=== PATIENT | male | born 1985 | race Caucasian/White ===

== ENCOUNTER → 2019-10-09 13:39 | Outpatient (CLI) | payer BC, SELFPAY ==
[2018-11-24 12:42] VITALS: BMI 25.4
--- NOTE | 2019-10-09 13:41 | CT_ITS ---
STUDY: CT SOFT TISSUE NECK WITH CONTRAST REASON FOR EXAM: Male, 34 years old. PT STATED PALPABLE LUMP ON BOTH SIDES OF NECK. RADIATION DOSAGE (If Supplied By Facility): CTDIvol = ( 17.42 ) mGy, DLP = ( 569.80 ) mGycm TECHNIQUE: The patient was scanned in a multi-detector CT scanner. High resolution transaxial imaging was performed following intravenous administration of IV 100mL Isovue-300. Sagittal and coronal images were reconstructed. Individualized dose optimization techniques were used for this CT. COMPARISON: None. FINDINGS: Mild enlargement of both lobes of the thyroid worse on the right side with heterogeneous density. This may represent goitrous change. Correlation with ultrasound is recommended. Normal bilateral parotid glands. Normal bilateral lamp mechanic spaces. Normal bilateral parapharyngeal spaces. Normal bilateral carotid spaces. Normal bilateral sublingual and submandibular glands and spaces. Normal visualized nasopharynx. Normal retropharyngeal space. Normal perivertebral space. Normal visualized bilateral faucial tonsils. The visualized tongue, tongue base and oropharynx are normal. There are minimally enlarged lymph nodes of the neck, with preservation of normal josé miguel architecture, consistent with a reactive lymph hyperplasia. There is no demonstrated solid or cystic mass lesion. There is no abnormal contrast enhancement. Normal epiglottis, bilateral vallecula and hypopharynx. The pre-epiglottic and paraglottic adipose spaces are normal. Normal visualized bilateral piriform sinuses, aryepiglottic folds, vocal cords, and arytenoid-cricoid articulations. Normal subglottic trachea. Normal bilateral lobes of the thyroid gland. Normal visualized pulmonary apices. Normal visualized paranasal sinuses. Normal visualized cervical spine. CT/Soft Tissue Neck WITH Contrast IMPRESSION: Heterogeneous appearance of both lobes of thyroid with mild enlargement of the thyroid gland more prominent in the right lobe of the thyroid. Correlation with ultrasound is recommended for further evaluation. Electronically Signed: Uriel Vargas, at 14:45 EST , Service support ,
[2019-10-09 13:51] LABS: CREATININE FINGERSTICK 1.1 mg/dL (0.70-1.30); EGFR FINGERSTICK > 60.0000 mL/min (>60)
== END ==
PROVIDERS: PCP Family Medicine; Referring Provider Otolaryngology; Visit Provider Otolaryngology
DX: R22.1 Localized swelling, mass and lump, neck (principal)
CPT/HCPCS: 70491; Q9967

== ENCOUNTER → 2020-10-03 10:32 | Outpatient (CLI) | payer BC, SELFPAY ==
[2020-10-03 09:42] VITALS: BMI 27.7
[2020-10-03 12:56] LABS: AST(SGOT) 17 U/L (15-37); Alanine Aminotransfer ALT/SGPT 25 U/L (16-61); Albumin, Serum 4.1 g/dL (3.2-5.0); Alkaline Phosphatase 57 U/L (45-117); Anion Gap 4 (5-15); BUN 8 mg/dL (7-18); BUN/Creat Ratio 8.1 RATIO (10-20); Calcium,Total 9.3 mg/dL (8.5-10.1); Chloride 103 mmol/L (98-107); Cholesterol 267 mg/dL (200); Creatinine, Serum 0.99 mg/dL (0.70-1.30); EST Glomerular Filtration Rate 91 mL/min (>60); Est Glom Filt Rate - Afr Amer 110 mL/min (>60); Globulin 4.1 g/dL (2.2-4.2); Glucose 103 mg/dL (74-106); High Density Lipoprotein 42 mg/dL; Potassium 4.4 mmol/L (3.5-5.1); Protein, Total 8.2 g/dL (6.4-8.2); Sodium Level 137 mmol/L (136-145); Thyroid Stim Hormone (TSH) 8.67 uIU/mL (0.358-3.74); Triglycerides 161 mg/dL; Very Low Density Lipoprotein 32 mg/dL (5-40)
[2020-10-03 13:10] LABS: Microalbumin,Random Urine < 5.0 mg/L (NO RANGE EST.)
[2020-10-04 20:39] LABS: Thyroid Peroxidase AB 181 IU/mL (0-34)
== END ==
PROVIDERS: PCP Family Medicine; Referring Provider Internal Medicine Endocrinology, Diabetes & Metabolism; Visit Provider Internal Medicine Endocrinology, Diabetes & Metabolism
DX: E78.2 Mixed hyperlipidemia (principal); E10.9 Type 1 diabetes mellitus without complications
CPT/HCPCS: 36415; 80053; 80061; 82043; 82570; 84443; 86376

== ENCOUNTER → 2021-01-02 09:55 | Outpatient (CLI) | payer BC, SELFPAY ==
[2021-01-02 09:23] VITALS: BMI 27.0
[2021-01-02 13:34] LABS: Cholesterol 237 mg/dL (200); High Density Lipoprotein 45 mg/dL; T4 Free Direct 1.14 ng/dL (0.76-1.46); Thyroid Stim Hormone (TSH) 1.34 uIU/mL (0.358-3.74); Triglycerides 140 mg/dL; Very Low Density Lipoprotein 28 mg/dL (5-40)
== END ==
PROVIDERS: PCP Family Medicine; Referring Provider Internal Medicine Endocrinology, Diabetes & Metabolism; Visit Provider Internal Medicine Endocrinology, Diabetes & Metabolism
DX: E03.8 Other specified hypothyroidism (principal); E06.3 Autoimmune thyroiditis; E78.2 Mixed hyperlipidemia
CPT/HCPCS: 36415; 80061; 84439; 84443

== ENCOUNTER 2021-12-09 15:04 | Outpatient (CLI) | payer BC, SELFPAY ==
[2021-12-09 16:56] LABS: ALB/GLOB Ratio 1.1 RATIO (0.9-2.4); AST(SGOT) 21 U/L (15-37); Alanine Aminotransfer ALT/SGPT 40 U/L (16-61); Albumin, Serum 4.2 g/dL (3.2-5.0); Alkaline Phosphatase 54 U/L (45-117); Anion Gap 4 (5-15); BUN 11 mg/dL (7-18); Calcium,Total 9.1 mg/dL (8.5-10.1); Chloride 102 mmol/L (98-107); Cholesterol 210 mg/dL (200); EST Glomerular Filtration Rate 89 mL/min (>60); Est Glom Filt Rate - Afr Amer 108 mL/min (>60); Globulin 3.9 g/dL (2.2-4.2); Glucose 242 mg/dL (74-106); High Density Lipoprotein 47 mg/dL; Potassium 3.9 mmol/L (3.5-5.1); Protein, Total 8.1 g/dL (6.4-8.2); Sodium Level 137 mmol/L (136-145); T4 Free Direct 0.99 ng/dL (0.76-1.46); Thyroid Stim Hormone (TSH) 3.05 uIU/mL (0.358-3.74); Triglycerides 196 mg/dL; Very Low Density Lipoprotein 39 mg/dL (5-40)
[2021-12-09 17:02] LABS: Creatinine, Urine (random) < 13.00 mg/dL (NO RANGE EST.); Microalbumin,Random Urine < 5.0 mg/L (NO RANGE EST.)
== END 2021-12-09 23:59 | disposition home or self-care (01) ==
LOC: BIMLAB 15:04
PROVIDERS: PCP Family Medicine; Referring Provider Internal Medicine Endocrinology, Diabetes & Metabolism; Visit Provider Internal Medicine Endocrinology, Diabetes & Metabolism
DX: E10.65 Type 1 diabetes mellitus with hyperglycemia (principal); E03.8 Other specified hypothyroidism; E06.3 Autoimmune thyroiditis; E78.2 Mixed hyperlipidemia
CPT/HCPCS: 36415; 80053; 80061; 82043; 82570; 84439; 84443

== ENCOUNTER → 2023-04-12 | Outpatient (CLI) | payer BC, SELFPAY ==
[2023-04-12 13:44] LABS: Microalbumin,Random Urine < 5.0 mg/L (NO RANGE EST.)
[2023-04-12 13:56] LABS: AST(SGOT) 31 U/L (15-37); Alanine Aminotransfer ALT/SGPT 43 U/L (16-61); Albumin, Serum 3.9 g/dL (3.2-5.0); Alkaline Phosphatase 53 U/L (45-117); Anion Gap 2 (5-15); BUN 11 mg/dL (7-18); BUN/Creat Ratio 10.8 RATIO (10-20); Calcium,Total 9.4 mg/dL (8.5-10.1); Chloride 103 mmol/L (98-107); Cholesterol 182 mg/dL (200); Creatinine, Serum 1.02 mg/dL (0.70-1.30); EST Glomerular Filtration Rate 87 mL/min (>60); Est Glom Filt Rate - Afr Amer 105 mL/min (>60); Globulin 3.9 g/dL (2.2-4.2); Glucose 150 mg/dL (74-106); High Density Lipoprotein 51 mg/dL; Protein, Total 7.8 g/dL (6.4-8.2); Sodium Level 134 mmol/L (136-145); T4 Free Direct 0.91 ng/dL (0.76-1.46); Thyroid Stim Hormone (TSH) 3.95 uIU/mL (0.358-3.74); Triglycerides 149 mg/dL; Very Low Density Lipoprotein 30 mg/dL (5-40)
[2023-04-12 14:22] LABS: Hemoglobin A1c 6.5 % (3.8-5.6)
== END | disposition home or self-care (01) ==
LOC: BIMLAB 10:49
PROVIDERS: PCP Family Medicine; Referring Provider Internal Medicine Endocrinology, Diabetes & Metabolism; Visit Provider Internal Medicine Endocrinology, Diabetes & Metabolism
DX: E10.9 Type 1 diabetes mellitus without complications (principal); Z96.41 Presence of insulin pump (external) (internal); Z46.81 Encounter for fitting and adjustment of insulin pump; E03.8 Other specified hypothyroidism; E06.3 Autoimmune thyroiditis; E78.2 Mixed hyperlipidemia; E66.3 Overweight
CPT/HCPCS: 36415; 80053; 80061; 82043; 82570; 83036; 84439; 84443

== ENCOUNTER → 2023-11-02 | Outpatient (CLI) | payer BC, SELFPAY ==
--- NOTE | 2023-11-02 11:43 | US_ITS ---
STUDY: THYROID ULTRASOUND REASON FOR EXAM: Male, 38 years old. Goiter TECHNIQUE: Ultrasound evaluation of the thyroid was performed with real-time and static ureña-scale imaging. COMPARISON: None. FINDINGS: RIGHT LOBE: The right lobe of the thyroid gland is enlarged and measures 5.9 cm x 2.4 cm x 2.5 cm. There is a heterogeneous echotexture. There is a 8 mm x 6 mm x 6 mm hypoechoic solid nodule in the midpole of the right lobe. The nodule has a hypodense rim suggestive of a possible goitrous change. LEFT LOBE: The left lobe of the thyroid gland is enlarged and measures 5.4 cm x 2 cm x 2.1 cm. There is a heterogeneous echotexture. There are no demonstrated solid, cystic or complex lesions. ISTHMUS: The isthmus measures 4 mm. The regional lymph nodes are normal. US/Thyroid IMPRESSION: Mildly enlarged thyroid gland with heterogeneous echotexture. 8 mm x 6 mm x 6 mm hypoechoic solid nodule in the midpole of the right lobe of the thyroid suggestive of goitrous change. Electronically Signed: Uriel Vargas MD at 14:05 EST ,
--- OUTSIDE RECORDS SUMMARY | 2023-11-02 12:43 | XMS RPT_ITS | CCD ---
Author Name Unknown Address [address] [facility] [facility] [address] [place] [address] Organization [facility] Care Team Providers Care Bulk Intake Worker Name Role Phone Zoë Hernandez NP Unavailable [place] CHRONOMETER REPAIRER, Karen K Unavailable Unavailable [place] CHRONOMETER REPAIRER, Akren K Unavailable Unavailable [place] CHRONOMETER REPAIRER, Karen K Unavailable Unavailable Mary RELAY MOTORMANZoë Unavailable HAMILTON PRICE Consulting Unavailable REBECCA, DR LING London Admitting Unavaila ble REBECCA, DR LING London Attending Unavaila ble REBECCA, DR LING London Primary Care Unavaila ble PROVIDER, UNKNOWN Consulting Unavailable PROVIDER, UNKNOWN Consulting Unavailable PROVIDER, UNKNOWN Consulting Unavailable REBECCA, DR LING London Admitting Unavaila ble HAMILTON PRICE Consulting Unavailable REBECCA, DR LING London Attending Unavaila ble REBECCA, DR LING London Primary Care Unavaila ble PROVIDER, UNKNOWN Consulting Unavailable PROVIDER, UNKNOWN Consulting Unavailable PROVIDER, UNKNOWN Consulting Unavailable ORTA, DIANN Admitting Unavailable ORTA, DIANN Attending Unavailable ORTA, DIANN Consulting Unavailable YOU, DIANN Primary Care Unavailable PROVIDER, UNKNOWN Consulting Unavailable NATALI HARPER Primary Care Unavailable HAMILTON PRICE Consulting Unavailable NATALI HARPER Admitting Unavailable NATALI HARPER Attending Unavailable PROVIDER, UNKNOWN Consulting Unavailable PROVIDER, UNKNOWN Consulting Unavailable PROVIDER, UNKNOWN Consulting Unavailable DONTE BOLTON Attending Unavailable DONTE BOLTON Primary Care Unavailable DONTE BOLTON Admitting Unavailable YOU, DIANN Consulting Unavailable PROVIDER, UNKNOWN Consulting Unavailable Yudelka SELLERS, Lázaro Malone Unavailable King MARLO, Dr. Ballesteros Unavailable [facility], . [facility] Unavailable Aydee SELLERS, Dr. Nunes Unavailable Dr. Natali Harper MD Unavailable (Pelletier), [facility] Unavailable Mauri THERMITE WELDER, Krissy Unavailable You PTAINO, Diann Rosado Unavailable Gonzalo THERMITE WELDER, Aisha Unavailable Unavailable Stephan SELLERS, Donte Louis Unavailable Gogoi (scribe), Hemanta Unavailable Unavaila jl Rodriguez THERMITE WELDER, Allison Unavailable Unavailable Albert SELLERS, Hamilton Malone Unavailable Airam PATINO, Perla Melendez Unavailable Clifford PATINO, Reynold London Unavailable Benjamin KRUSEN, Juliette Unavailable Unavailable King ARISC, Gato Almaraz Unavailable [phone] Sherry MG, Perla Malone Unavailable Unavaila jl Werner RN, Yael Y Unavailable Unavailable Skinny THERMITE WELDER, Jo Unavailable Unavailable Mutersbacary THERMITE WELDER, Rosanna K Unavailable Unavai parag Gore THERMITE WELDER, Magaly L Unavailable Unavailab le Yeni THERMITE WELDER, Maria M M Unavailable Unavailab le Sesar THERMITE WELDER, Elzbieta Darden Unavailable Unavailab le Vess THERMITE WELDER, Matilda L Unavailable Unavailable Wengerd THERMITE WELDER, Liberty Unavailable Unavailabl e Unavailable Unavailable Allergies Allergy Classification Reported Allergen(s) Allergy Type Date of Onset Reaction(s) Facility (10 sources) Penicillins (Antibiotic) drug allergy 05-06-2017 [facility] Work Phone: (1 source) Penicillin Drug Allergy [facility] (1 source) Lovastatin Drug Allergy [facility], [place] [place] (1 source) Penicillin V Drug Allergy Rash [facility], [facility] Medications Current Medications Medication Drug Class(es) Dates Sig (Normalized) Sig (Original) atorvastatin 10 mg oral tablet (1 source) HMG-CoA Reductase Inhibitor Atorvastatin Calcium 10 MG Oral Tablet ; (10 MG) insulin aspart, human 100 unt/ml injectable solution (9 sources) Insulin Analog Start: 12-02-2020 NovoLOG 100 UNIT/ML Subcutaneous Solution ; 60 unit daily injected into insulin pump for 0 days Quantity: 20 {Milliliter} Refills: 5 Ordered: 02-Dec-2020 MD Hamilton Price Start: 02-Dec-2020 Completed/Discontinued Medications Medication Drug Class(es) Dates Sig (Normalized) Sig (Original) Accu-Chek Combo Kit (1 source) Start: 04-30-2017 End: 11-21-2018 Accu-Chek Combo Kit ; 1 (one) Kit now for 0 days Quantity: 1 Kit Refills: 0 Ordered: 21-Nov-2018 EZEKIEL Kaba Elzbieta Darden Start: 30-Apr-2017 End: 21-Nov-2018 Status: Inactive Comments: test twice daily Problems Active Problems Problem Classification Problem Date Documented Date Episodic/Chronic Abdominal pain (1 source) Abdominal pain - cause unknown; Translations: [Left upper quadrant pain] 01-14-2017 Episodic Acute bronchitis (2 sources) Acute bronchitis; Translations: [Acute bronchitis, unspecified] 08-15-2019 Episodic Administrative/social admission (2 sources) Issue of repeat prescriptions 01-04-2015 Episodic Allergic reactions (7 sources) Contact dermatitis; Translations: [Unspecified contact dermatitis, unspecified cause] 03-13-2014 Episodic Chronic obstructive pulmonary disease and bronchiectasis (4 sources) Bronchitis; Translations: [Bronchitis, not specified as acute or chronic] 04-22-2022 Episodic Contraceptive and procreative management (3 sources) Contraception status; Translations: [Encounter for sterilization] 02-04-2022 Episodic Diabetes mellitus without complication (17 sources) Type 1 diabetes mellitus; Translations: [Type 1 diabetes mellitus without complications] Onset: 05-06-2017 05-06-2017 Chronic Past or Other Problems Problem Classification Problem Date Documented Da te Episodic/Chronic Unclassified (1 source) Cold Symptoms - Symptoms include sneezing, runny nose, non-purulent sputum (clear), ear fullness ( always feels like there is liquid in my ears . Did use flonase in the past but gave him bloody noses), sore throat (is worse in the mornings, has post nasal drainage), hoarseness and productive cough (in the mornings has noticed some blood tinged sputum), but do not include nasal congestion, ear pain, dry cough, wheezing (no shortness of breath), fever, chills, general malaise (no body aches), headache or facial pain. The onset was gradual day(s) ago (8-9 days). The symptoms occur constantly. The patient describes this as moderate in severity and unchanged. Current treatment includes an oral decongestant (mucinex). Risk factors do not include smoking. The patient has not been exposed to an individual with an upper respiratory infection (possibly, has young children). Medical history includes seasonal allergies and asthma (exercise-induced asthma), but patient denies history of recurrent sinusitis. Note for Upper respiratory infection : Took 3 Covid-19 tests at home, which were all negative. 07-31-2022 Unclassified (1 source) Cold Symptoms - Symptoms include ear pain, dry cough, productive cough and headache. The onset was gradual 5 day(s) ago. The symptoms occur constantly. The patient describes this as moderate in severity and improving (slightly better). Current treatment includes non-prescription cold medication (mucinex DM). Risk factors do not include smoking. The patient has not been exposed to an individual with a cough, an individual with an upper respiratory infection, an individual with similar symptoms, an individual with strep or secondhand smoke. Medical history includes seasonal allergies, but patient denies history of recurrent sinusitis, recurrent strep pharyngitis, tonsillectomy or recurrent ear infections. Note for Upper respiratory infection : pt tested m,t,w with home covid tests- all negative reviewed by [facility] 04-22-2022 Unclassified (1 source) Cold Symptoms - Symptoms include ear pain, ear fullness and sore throat (only in the morning, thinks it might be from drainage). The onset was gradual 4 day(s) ago. The symptoms occur constantly. The patient describes this as moderate in severity and unchanged. Current treatment includes nasal corticosteroids. Medical history includes seasonal allergies. Note for Upper respiratory infection : Pt is also having nose bleeds 02-11-2022 Unclassified (1 source) Vasectomy - Consent signed: yes. Has available transportation home: yes. Pre-Op med taken: yes. 12-12-2021 Unclassified (1 source) Sore throat - The onset of the sore throat has been sudden and has been occurring in a persistent pattern for 1 day (Started yesterday). The course has been without change. The sore throat is described as mild to moderate. The sore throat was precipitated by exposure to a person with strep pharyngitis (Patient's son tested positive for Strep on ) and exposure to a person with a viral illness (Patient's tested positive for COVID on Wednesday), but not by chest congestion, exposure to chemicals, exposure to a person with influenza, sinus infection or sinus problems. Symptoms include sore throat, runny nose and cough, but do not include fever, headache, nasal congestion or ear pain. The symptoms are aggravated by eating and swallowing. Relieving factors include drinking liquids (warm liquids). Medical history includes recurrent strep pharyngitis (had it many times as a kid and a few times as an adult.), but does not include seasonal allergies, recurrent sinusitis or tonsillectomy. Note for Sore throat : 2 negative rapid covid tests 09-15-2021 Unclassified (1 source) Vasectomy evaluation - The patient is . He has 2 biological child(du). 08-20-2021 Unclassified (1 source) Abdominal pain - The onset of the abdominal pain has been gradual and has been occurring in an intermittent pattern for 1 week. The course has been recurrent. The pain is described as a moderate fullness and cramping. The pain is located in the left upper quadrant (under ribs) and left lower quadrant and does not radiate. The symptoms are aggravated by lying down (lay he lays on his side a certain way) and empty stomach but are relieved by nothing (standing sometimes gives relief). The symptoms have been associated with bloating, while the symptoms have not been associated with abdominal distention, bloody stools, chest pain, constipation, diarrhea, dysuria, fever, heartburn, nausea or vomiting. Note for Abdominal pain : pt said its under his left side of his rib and feels like something is out of place-- says he has to lay in different positions sometimes to give it relievesays he will feel bloated but is still hungry since he has not atept said a few weeks ago he did lift something the other day that was too heavy -- unsure if this is related but pot thought why would he also have the bloatingpt said in college he did have an umbilical hernia 01-16-2021 Unclassified (1 source) Chest pain - The pain has been occurring in a persistent (always feel the discomfort of his chest but then will have waves of increased discomfort.) pattern for 4 days. The pain is described as a discomfort and dull ache. The pain is described as being located in the left chest (started on left side, that radiated straight through to his upper back) and right chest. There has been no associated fever (no SOB.). Note for Chest pain : About 2 weeks ago, for about 3 days had a burning sensation of his lower chest. Water would not affect the pain. If he would drink pop or milk or would eat the burning sensation would get worse. He started taking an acid crab picker and this resolved.Reviewed by Diann Orta PA-C. 03-14-2020 Unclassified (1 source) Cold Symptoms - Symptoms include nasal congestion, runny nose, purulent discharge, productive cough and headache, but do not include fever. The onset was gradual 2 week(s) ago. The symptoms occur constantly. The patient describes this as moderate in severity and unchanged. The patient is not currently being treated for this problem. Note for Upper respiratory infection : Children have also been ill but no fevers. Pt has coughed a few times and had some blood. 12-11-2019 Unclassified (1 source) swollen lymph nodes - pt says he delt with this as a kid- they would flare up and then go back to normal pt says they have been inflammed for the past week weeks, little tender and hard pt says some left sided chest pain while moving as wellno fever, sore thorat, nasal congestion 09-28-2019 Unclassified (1 source) Cold Symptoms - Symptoms include sneezing, nasal congestion, runny nose, ear fullness, sore throat, productive cough, fever (100.1 was highest), chills and headache, but do not include general malaise. The onset was sudden 6 day(s) ago. The symptoms occur constantly. The patient describes this as moderate in severity and unchanged. Current treatment includes non-prescription cold medication. The patient has been exposed to an individual with an upper respiratory infection. 08-17-2019 Unclassified (1 source) Eye symptoms - The onset of the eye symptoms has been acute and has been occurring for 4 days. The eye symptoms involve the right eye. Note for Eye symptoms : Initially, patient noticed a slight pain/discomfort to the lateral side of right eye. Then developed swelling below the right eye, the swelling has improved but now is concerned due to there being a small hard lump present. No eye pain or itchiness. Does have seasonal allergies and wears contacts. Has history of styes. 03-17-2019 Unclassified (1 source) Abdominal pain - The onset of the abdominal pain has been sudden and has been occurring in a persistent pattern for 2 days. The course has been increasing. The pain is described as a moderate dull ache and cramping. The pain is located in the left upper quadrant and radiates to the back. The symptoms have no aggravating factors but have no relieving factors. There has been no associated constipation or diarrhea. 01-14-2017 Unclassified (1 source) Knee pain - The knee pain has been occurring in an intermittent pattern for 10 years (used to occur every couple of months but is now becoming more frequent. Every couple weeks. ). The course has been gradually worsening. The knee pain is moderate in the left knee. The knee pain is characterized as a sharp stabbing. The knee pain is described as being located in the lateral knee. The knee pain is relieved by rest, heat and ice. The symptoms have been associated with giving way, catching and locking. Previous diagnostic tests include plain radiographs (about 10 years ago had xrays done). There has been no previous physical therapy. There has been no previous surgeries. Assistive devices include bracing (knee brace). Note for Knee pain : Did play sports when he was younger. No new pain, problems, just want to get looked at. 07-17-2016 Unclassified (1 source) Concern - Patient is here today with a concern of possible lump of testicle. Noticed a couple of weeks ago. Size remains the same. Denies causing any pain or heaviness. No burning on urination, urgency or frequency. No Fever. Does not regularly do self testicular exams. Denies problems with ejaculation. Denies blood in semen and urine. 04-29-2016 Unclassified (1 source) Chest pain - The onset of the pain has been sudden and has been occurring in an increasing pattern for 3 days. The pain is described as a moderate tightness. The pain is described as being located in the left chest and does not radiate. The pain is precipitated by exercise (different movement-stretching). The symptoms are aggravated by stress. The symptoms have no relieving factors. The symptoms have been associated with emotional stress (work stress, planning a wedding, and looking for a house to buy), but have not been associated with abdominal pain, cough, dizziness, diaphoresis, dyspnea, fever, headache, history of heart disease, hypertension, nausea, palpitations, shoulder pain or vomiting. There have been no previous evaluations. There is a family history of diabetes and hypertension, while there is no family history of coronary artery disease. 12-20-2015 Unclassified (1 source) Abdominal pain - The onset of the abdominal pain has been acute and has been occurring in a persistent pattern for 6 days. The course has been decreasing. The pain is described as a moderate dull ache and pressure sensation. The pain is located in the right lower quadrant and left lower quadrant and does not radiate. The symptoms have been associated with bloating and constipation, while the symptoms have not been associated with dysuria, fever or nausea. 09-16-2015 Unclassified (1 source) Rash - The onset of the rash has been acute and has been occurring in a persistent pattern for 3 days. The course has been increasing. The rash is characterized as red. The rash was first seen on the upper extremity. It spread to the trunk (abdomen) and the groin. There has been associated itching. 12-24-2014 Unclassified (1 source) Eye Symptoms - The onset of the eye symptoms has been acute and has been occurring in a persistent pattern for 2 days. The course has been worsening. The eye symptoms are described as moderate and involve the right eye. The symptoms are described as pain and swelling. Note for Eye symptoms : reviewed by [facility] 11-19-2014 Unclassified (1 source) Well adult male - The patient feels well with no complaints. The patient has a balanced diet. The patient exercises 3 - 4 times per week. The patient sleeps 7 hours per night. 08-24-2014 Unclassified (1 source) Rash - The onset of the rash has been acute and has been occurring in a persistent pattern for 3 days. The course has been constant. The rash is characterized as red, raised above the skin and grouped in crops. The rash was first seen on the lower extremity (right ankle area). It spread to the lower extremity (left leg). There has been associated itching and erythema, while there has been no associated pain, drainage or edema. There has been no associated chills, fever or mucous membrane lesions. 01-17-2014 Unclassified (1 source) Abdominal pain - The onset of the abdominal pain has been acute and has been occurring in an intermittent pattern for 3 days. The course has been decreasing. The pain is described as a moderate sharp pain. The pain is located in the right lower quadrant (below surgery incision) and does not radiate. The symptoms are aggravated by exercise. There has been no associated bloating, constipation, diarrhea, fever, nausea or vomiting. Note for Abdominal pain : Patient had appendectomy on 09/06/13 and has had intermittent pain since then. Patient lifted a gun case and has pain since. 11-08-2013 Unclassified (1 source) Rash - The onset of the rash has been acute and has been occurring in a persistent pattern for 1 day. The course has been increasing. The rash is characterized as red, raised above the skin and grouped in crops. The rash was first seen on the upper extremity (left). It spread to the lower extremity (bilateral). There has been associated itching and pain. There has been associated itching. Note for Rash : Patient was exposed to poison jannette while weedeating 2 days ago. 02-02-2013 Unclassified (1 source) Cold Symptoms - Symptoms include productive cough, wheezing and headache. The onset was gradual 1 week(s) ago. The symptoms occur constantly. The patient describes this as moderate in severity and worsening. The patient is not currently being treated for this problem. 10-21-2012 Results Test Name Value Interpretation Reference Range Facil ity Vital Signs Date Time Vital Sign Value Performing Clinician Faci lity 07-31-2022 11:02-0500 Body height 198.12 cm Perla Powell RN [facility], [facility] [facility] 07-31-2022 11:02-0500 Body mass index (BMI) [Ratio] 27.85 kg/m2 [facility] [employer] [facility] 07-31-2022 11:02-0500 Body surface area Derived from formula 2.44 m2 [facility] [employer] [facility] 07-31-2022 11:02-0500 Body temperature 98.8 [degF] Perla Powell RN [facility]; [facility] Encounters Encounter Date Encounter Type Care Provider Facility Start: 08-31-2022 End: 08-31-2022 Nursing evaluation of patient and report Lázaro Jha MD Work Phone: [facility] Start: 07-31-2022 End: 07-31-2022 Office outpatient visit 15 minutes Lázaro Jha MD Work Phone: [facility] Start: 04-22-2022 End: 04-22-2022 Office outpatient visit 15 minutes Lázaro Jha MD Work Phone: [facility] Start: 02-11-2022 End: 02-11-2022 Office outpatient visit 15 minutes Lázaro Jha MD Work Phone: [facility] Start: 02-04-2022 End: 02-04-2022 Historical Summary Lázaro Jha MD Work Phone: [facility] Start: 12-12-2021 End: 12-12-2021 Procedure Lázaro Jha MD Work Phone: [facility] Start: 09-18-2021 End: 09-18-2021 Medication Lázaro Jha MD Work Phone: [facility] Start: 09-17-2021 End: 09-17-2021 ambulatory DONTE BOLTON [facility] Start: 09-17-2021 End: 09-17-2021 Orders Lázaro Jha MD Work Phone: [facility] Start: 09-15-2021 End: 09-15-2021 ambulatory DIANN ORTA [facility] Start: 09-15-2021 End: 09-15-2021 Office outpatient visit 15 minutes Lázaro Jha MD Work Phone: [facility] Start: 08-20-2021 End: 08-20-2021 Patient encounter procedure Lázaro Jha MD Work Phone: [facility] Start: 04-02-2021 End: 04-02-2021 Follow-up encounter Lázaro Jha MD Work Phone: [facility] Start: 03-05-2021 End: 03-05-2021 ambulatory NATALI HARPER [facility] Start: 01-16-2021 End: 01-16-2021 Office outpatient visit 15 minutes Lázaro Jha MD Work Phone: [facility] Start: 12-20-2020 End: 12-20-2020 ambulatory HAMILTON Malone ALBERT [facility] Start: 11-22-2020 End: 11-22-[address] LING FERNANDEZ [facility] Start: 2020 End: 2020 Follow-up encounter Lázaro Jha MD Work Phone: [facility] Start: 06-21-2020 End: 06-21-2020 Office outpatient visit 15 minutes Lázaro Jha MD Work Phone: [facility] Start: 04-19-2020 End: 04-19-2020 Follow-up encounter Lázaro Jha MD Work Phone: [facility] Start: 03-14-2020 End: 03-14-2020 Office outpatient visit 15 minutes Lázaro Jha MD Work Phone: [facility] Start: 01-17-2020 End: 01-17-2020 Follow-up encounter Lázaro Jha MD Work Phone: [facility] Start: 12-11-2019 End: 12-11-2019 Office outpatient visit 15 minutes Lázaro Jha MD Work Phone: [facility] Start: 10-31-2019 End: 10-31-2019 Historical Summary Lázaro Jha MD Work Phone: [facility] Start: 09-28-2019 End: 09-28-2019 Follow-up encounter Lázaro Jha MD Work Phone: [facility] Start: 09-28-2019 End: 09-28-2019 Office outpatient visit 15 minutes Lázaro Jha MD Work Phone: [facility] Start: 08-15-2019 End: 08-17-2019 Office outpatient visit 15 minutes Lázaro Jha MD Work Phone: [facility] Start: 08-09-2019 End: 08-09-2019 Follow-up encounter Lázaro Jha MD Work Phone: [facility] Start: 07-22-2019 End: 07-22-2019 Home visit Lázaro Jha MD Work Phone: [facility] Start: 07-04-2019 End: 07-04-2019 Follow-up encounter Lázaro Jha MD Work Phone: [facility] Start: 06-28-2019 End: 06-28-2019 Medication Lázaro Jha MD Work Phone: [facility] Start: 06-28-2019 End: 06-28-2019 Follow-up encounter Lázaro Jha MD Work Phone: [facility] Start: 06-14-2019 End: 06-14-2019 Orders Lázaro Jha MD Work Phone: [facility] Start: 05-17-2019 End: 05-17-2019 Follow-up encounter Lázaro Jha MD Work Phone: [facility] Start: 05-03-2019 End: 05-03-2019 Follow-up encounter Lázaro Jha MD Work Phone: [facility] Start: 03-20-2019 End: 03-20-2019 Medication Lázaro Jha MD Work Phone: [facility] Start: 03-17-2019 End: 03-17-2019 Office outpatient visit 15 minutes Lázaro Jha MD Work Phone: [facility] Start: 02-08-2019 End: 02-08-2019 Follow-up encounter Lázaro Jha MD Work Phone: [facility] Start: 12-05-2018 End: 12-05-2018 Orders Lázaro Jha MD Work Phone: [facility] Start: 12-02-2018 End: 12-02-2018 Orders Lázaro Jha MD Work Phone: [employer] Start: 12-01-2018 End: 12-02-2018 Orders Lázaro Jha MD Work Phone: [facility] Start: 11-21-2018 End: 11-21-2018 Office outpatient visit 25 minutes Lázaro Jha MD Work Phone: [facility] Start: 08-10-2018 End: 08-10-2018 Nursing evaluation of patient and report Lázaro Jha MD Work Phone: [facility] Start: 05-27-2018 End: 05-27-2018 Historical Summary Lázaro Jha MD Work Phone: [facility] Start: 06-09-2017 End: 06-09-2017 Nursing evaluation of patient and report Lázaro Jha MD Work Phone: [facility] Start: 05-07-2017 End: 05-07-2017 Historical Summary Lázaro Jha MD Work Phone: [facility] Start: 04-30-2017 End: 04-30-2017 Medication Lázaro Jha MD Work Phone: [facility] Start: 01-14-2017 End: 01-14-2017 Office outpatient visit 15 minutes Lázaro Jha MD Work Phone: [facility] Start: 11-13-2016 End: 11-13-2016 Nursing evaluation of patient and report Lázaro Jha MD Work Phone: [facility] Start: 08-05-2016 End: 08-05-2016 Nursing evaluation of patient and report Lázaro Jha MD Work Phone: [facility] Start: 07-17-2016 End: 07-17-2016 Patient encounter procedure Lázaro Jha MD Work Phone: [facility] Start: 04-29-2016 End: 04-29-2016 Patient encounter procedure Lázaro Jha MD Work Phone: [facility] Start: 01-08-2016 End: 01-08-2016 Orders Lázaro Jha MD Work Phone: [facility] Start: 01-07-2016 End: 01-07-2016 Orders Lázaro Jha MD Work Phone: [facility] Start: 12-20-2015 End: 12-20-2015 Office outpatient visit 15 minutes Lázaro Jha MD Work Phone: [facility] Start: 09-16-2015 End: 09-16-2015 Patient encounter procedure Lázaro Jha MD Work Phone: [facility] Start: 01-04-2015 End: 01-04-2015 Medication Lázaro Jha MD Work Phone: [facility] Start: 12-27-2014 End: 12-28-2014 Medication Lázaro Jha MD Work Phone: [facility] Start: 12-24-2014 End: 12-24-2014 Office outpatient visit 10 minutes Lázaro Jha MD Work Phone: [facility] Start: 12-03-2014 End: 12-03-2014 Orders Lázaro Jha MD Work Phone: [facility] Start: 11-19-2014 End: 11-19-2014 Office outpatient visit 15 minutes Lázaro Jha MD Work Phone: [facility] Start: 08-24-2014 End: 08-24-2014 Periodic preventive med est patient 18-39 yrs Lázaro Jha MD Work Phone: [facility] Start: 03-13-2014 End: 03-13-2014 Medication Lázaro Jha MD Work Phone: [facility] Start: 01-17-2014 End: 01-17-2014 Patient encounter procedure Lázaro Jha MD Work Phone: [facility] Start: 11-07-2013 End: 11-08-2013 Patient encounter procedure Lázaro Jha MD Work Phone: [employer]. Start: 03-25-2013 End: 03-25-2013 Orders Lázaro Jha MD Work Phone: [employer]. Start: 02-01-2013 End: 02-02-2013 Patient encounter procedure Lázaro Jha MD Work Phone: [employer]. Start: 10-20-2012 End: 10-21-2012 Patient encounter procedure Lázaro Jha MD Work Phone: [facility] Procedures Date Procedure Procedure Detail Performing Clinician Start: 12-25-2022 End: 12-25-2022 Examination of retina Krissy Dotson [employer] Work Phone: Plan of Treatment Date Care Activity Detail Author Start: 05-14-2019 Transferase alanine amino alt sgpt ALT (SGPT) (13485) Start: 14-May-2019 17:03 Request [employer]. Start: 05-14-2019 Lipid panel LIPID PANEL (37850) Start: 14-May-2019 17:03 Request [employer]. Start: 08-12-2017 End: 08-14-2017 *CMP Complete Metabolic Panel *CMP Complete Metabolic Panel [facility] Work Phone: Start: 08-12-2017 End: 08-14-2017 *Microalbumin, Creatine Ratio, rand urine *Microalbumin, Creatine Ratio, rand urine [facility] Work Phone: Start: 08-12-2017 End: 08-14-2017 Hemoglobin A1c/Hemoglobin.total mass fraction (Bld) *HgA1C [facility] Work Phone: Start: 08-12-2017 End: 08-14-2017 Lipid panel [AGGREGATE] *Lipid Profile [facility] Work Phone: Start: 05-06-2017 End: 05-14-2017 *MISC - Miscellaneous Lab Test #1 *MISC - Miscellaneous Lab Test #1 [facility] Work Phone: Start: 05-06-2017 End: 05-09-2017 C peptide [Mass/volume] in Serum or Plasma *CPEP - C-Peptide [facility] Work Phone: Start: 05-06-2017 End: 05-06-2017 Hemoglobin A1c/Hemoglobin.total mass fraction (Bld) *HgA1C [facility] Work Phone: Start: 05-06-2017 End: 05-06-2017 Appointment Appointment [facility] Work Phone: Start: 05-06-2017 End: 05-14-2017 *MISC - Miscellaneous Lab Test #1 *MISC - Miscellaneous Lab Test #1 [facility] Work Phone: Start: 05-06-2017 End: 05-09-2017 C peptide [Mass/volume] in Serum or Plasma *CPEP - C-Peptide [facility] Work Phone: Start: 05-06-2017 End: 05-06-2017 HbA1c *HgA1C [facility] Work Phone: dexAMETHasone so d phos (bulk) 100 % powder Ordered: 25-Mar-2013 MD Hamilton Price [facility], [facility], [facility]. dexAMETHasone so d phos (bulk) 100 % powder Ordered: 17-Jan-2014 SUKUMAR Alegria [facility], [facility].; [facility], [facility]. dexAMETHasone so d phos (bulk) 100 % powder Ordered: 24-Dec-2014 MD Hamilton Price [facility], [facility].; [facility], [place]. Immunizations Immunization Date Immunization Notes Care Provider Fa cili 08-31-2022 influenza, injectabl e, quadrivalent, contains preservative Lázaro Jha MD Work Phone: [employer] Payers Date Payer Category Payer Unknown [id number] [id number] 1984 Unknown [id number] [id number] 1984 Unknown [id number] [id number] 1984 Unknown [id number] [id number] [id number] 1984 Unknown [id number] [id number] [id number] Unknown [id number] Unknown ANTHEM Social History Date Type Detail Facility Alcohol Use: Alcohol Use: ; M oderate alcohol use. [employer] Caffeine Use Caffeine Use [facility] [employer] Tobacco Use: Tobacco Use: ; Former smoker . [facility]; [facility] Male [facility] [employer]; [facility] Work Phone: Moderate alcohol use [employer] Work Phone: Ex-smoker [facility] [employer] Work Phone: Medical Equipment Procedure Code Equipment Code Equipment Origin al Text Equipment Identifier Dates [id number], [id number] Start: 06-21-2020 Goals Date Patient Goal Desired Activity /State 02-08-2019 02-08-2019 Summary Purpose Family History Diabetes Mellitus Type II Status:Active Commen ts:Mother. Father. Hypertension Status:Active Comments:Father. Mother. Osteoarthritis Status:Active Comments:Father. Advance Directives No Advanced Directives Records FoundNo Advanced Directives Records FoundNo Advanced Directives Records Found Additional Source Comments (unrecognized sect ion and content) No Status Records FoundNo Status Records FoundNo Status Records Found INFORMATION SOURCE (unrecogn ized section and content) DATE CREATED AUTHOR AUTHOR'S SYLVIE ATION 09/23/2021 [facility] DATE CREATED AUTHOR AUTHOR'S SYLVIE ATION 12/20/2021 [facility] FOR RECORDS PERTAINING TO PATIENTS WHO ARE OR HAVE BEEN ENROLLED IN A CHEMICAL DEPENDENCY/SUBSTANCEABUSE PROGRAM, SOME INFORMATION MAY BE OMITTED. This clinical summary was aggregated from multiple sources. Caution should be exercised in using it in the provision of clinical care. This summary normalizes information from multiple sources, and as a consequence, information in this document may materially change the coding, format and clinical context of patient data. In addition, data may be omitted in some cases. CLINICAL DECISIONS SHOULD BE BASED ON THE PRIMARY CLINICAL RECORDS. [employer] provides no warranty or guarantee of the accuracy or completeness of information in this document.
== END | disposition home or self-care (01) ==
LOC: US 11:42
PROVIDERS: PCP Family Medicine; Referring Provider Internal Medicine Endocrinology, Diabetes & Metabolism; Visit Provider Internal Medicine Endocrinology, Diabetes & Metabolism
DX: E10.9 Type 1 diabetes mellitus without complications (principal); E78.2 Mixed hyperlipidemia; E03.8 Other specified hypothyroidism; E06.3 Autoimmune thyroiditis; Z96.41 Presence of insulin pump (external) (internal)
CPT/HCPCS: 76536